=== PATIENT | female | born 1985 | race Caucasian/White ===

== ENCOUNTER 2017-06-09 16:23 | Inpatient (IN) | payer OTHER ==
[~2017-06-09] VITALS: Ht 170.2 cm; Wt 103.2 kg
[~2017-06-09 16:23] MED LIST: IBU800 M1 PO; PERCOCET 325 MG1 TA2 PO
[2017-07-11] VITALS (19 sets, daily range): BP systolic 92–106; BP diastolic 46–69; PULSE 60–87; TEMP 97.5–98
[2017-07-11] MEDS ORDERED: OMEGA-31 SGL PO ×2 (06:36→06:37)
[2017-07-11 06:42] LABS: BASO % 0.3 % (0.0-2.0); EOS # 0.1 (0.0-0.7); EOS % 0.9 % (0-4.0); GRAN # 4.1 (1.4-6.5); GRAN % 60.1 % (42.2-75.2); LYMPH # 2.1 (1.2-3.4); MEAN CELL VOLUME 93 fl (80.0-100.0); MEAN CORPUSCULAR HGB CONC 33 g/dl (33.0-37.0); MEAN PLATELET VOLUME 11.5 fl (7.4-10.4); MONO # 0.5 (0.1-0.6); MONO % 7.4 % (1.7-9.3); PLATELET COUNT 187 K/mm3 (130-400); RED BLOOD COUNT 3.38 M/mm3 (4.10-5.30); REDCELL DISTRIBUTION WIDTH-CV 13.1 % (11.5-14.5)
[2017-07-11 06:54] LABS: HEMATOCRIT 31.3 % (37.0-47.0); HEMOGLOBIN 10.4 g/dl (12.5-16.0); MEAN CORPUSCULAR HEMOGLOBIN 31 pg (27.0-31.0)
[2017-07-11] MEDS ORDERED: MOTRIN 800800 MG/TAB PO (12:56)
[2017-07-11] MEDS ORDERED: PERCOCET 325 MG1 TA2 PO (12:56)
[2017-07-12] VITALS: BP 111/64; PULSE 74; TEMP 97.8
[2017-07-12 07:50] VITALS: BP 104/67; PULSE 81; TEMP 97.7
== END 2017-07-12 15:00 | disposition home or self-care (01) | DRG 766 ==
LOC: OB 07-11 05:25 → LDR 07-11 08:36 → OB 07-12 15:00 → LDR 07-18 16:19
PROVIDERS: Student in an Organized Health Care Education/Training Program
PROC: 10D00Z1 Extraction of Products of Conception, Low, Open Approach (ICD-10-PCS; principal; 2017-07-11)
DX: O34.211 Maternal care for low transverse scar from previous cesarean delivery (principal); N85.8 Other specified noninflammatory disorders of uterus; Z3A.39 39 weeks gestation of pregnancy; Z37.0 Single live birth
CPT/HCPCS: J0171; J0690; J1885; J2370; J2405; J2590; J3010; J7120

== ENCOUNTER 2019-11-17 06:51 | Inpatient (IN) | payer OTHER ==
[~2019-11-17] VITALS: Ht 165.2 cm; Wt 100.5 kg
[2019-11-17] VITALS (18 sets, daily range): BP systolic 91–121; BP diastolic 47–86; PULSE 61–85; TEMP 97.5–98.2
[~2019-11-17 06:51] MED LIST changes: +MOTRIN 800800 MG/TAB PO; +OMEGA-31 SGL PO
--- NOTE | 2019-11-17 09:15 | NUR ---
0915- Pt. ambulatory to the unit with by her side. Pt. orientated to room and changed into gown. Pt. reports GFM, No LOF, No CTX, and No blood. 0921- EFM and TOCO on and tracing. GFM audible. 0940- IV started, Fluids running, consents signed, assessment completed, pt. prepped for cesearan section. RN remains at bedside. Call light within reach, pt. denies further needs.
[2019-11-17] MEDS ORDERED: PRENATAL TABLET PO (09:57)
[2019-11-17 10:38] LABS: BASO % 0.3 % (0.0-2.0); EOS # 0.1 (0.0-0.7); EOS % 1.5 % (0-4.0); GRAN # 5.1 (1.4-6.5); GRAN % 67.9 % (42.2-75.2); HEMOGLOBIN 10.7 g/dl (12.5-16.0); LYMPH # 1.7 (1.2-3.4); MEAN CELL VOLUME 94 fl (80.0-100.0); MEAN CORPUSCULAR HEMOGLOBIN 31 pg (27.0-31.0); MEAN CORPUSCULAR HGB CONC 33 g/dl (33.0-37.0); MEAN PLATELET VOLUME 11.6 fl (7.4-10.4); MONO # 0.5 (0.1-0.6); MONO % 6.8 % (1.7-9.3); PLATELET COUNT 231 K/mm3 (130-400); RED BLOOD COUNT 3.49 M/mm3 (4.10-5.30); REDCELL DISTRIBUTION WIDTH-CV 12.9 % (11.5-14.5)
[2019-11-17 10:43] LABS: HEMATOCRIT 32.7 % (37.0-47.0)
[2019-11-18 01:30] VITALS: BP 115/53; PULSE 75; TEMP 97.8
[2019-11-18 05:00] VITALS: BP 115/65; PULSE 77; TEMP 98.4
[2019-11-18 07:56] VITALS: BP 110/64; PULSE 74; TEMP 98.1
[2019-11-18 16:48] VITALS: BP 100/63; PULSE 79; TEMP 97.4
[2019-11-18 19:25] VITALS: BP 123/67; PULSE 85; TEMP 97.8
[2019-11-19 06:46] VITALS: BP 114/66; PULSE 68; TEMP 98.1
[2019-11-19] MEDS ORDERED: PERCOCET 325 MG1 TA2 PO (08:11)
[2019-11-19] MEDS ORDERED: IBU800 M1 PO (08:11)
== END 2019-11-19 12:30 | disposition home or self-care (01) | DRG 788 ==
LOC: OB 06:51
PROVIDERS: ADMIT Student in an Organized Health Care Education/Training Program
PROC: 10D00Z1 Extraction of Products of Conception, Low, Open Approach (ICD-10-PCS; principal; 2019-11-17)
DX: O34.211 Maternal care for low transverse scar from previous cesarean delivery (principal); O99.214 Obesity complicating childbirth; E66.9 Obesity, unspecified; O99.344 Other mental disorders complicating childbirth; F32.9 Major depressive disorder, single episode, unspecified; O99.52 Diseases of the respiratory system complicating childbirth; J45.909 Unspecified asthma, uncomplicated; Z37.0 Single live birth; Z3A.39 39 weeks gestation of pregnancy
CPT/HCPCS: J0690; J1885; J2370; J2405; J3010; J7120